=== PATIENT | female | born 1975 | race Caucasian/White ===

== ENCOUNTER 2024-05-12 16:38 | Inpatient (IN) | payer MEDICAID, OTHER ==
[~2024-05-12] VITALS: Ht 167.6 cm; Wt 77.2 kg
[2024-05-12 17:57] LABS: ANION GAP 8 mmol/L (8-16); CALCIUM, TOTAL 9.2 mg/dL (8.8-10.5); CARBON DIOXIDE 28 mmol/L (22-29); CHLORIDE 102 mmol/L (98-107); CREATININE 0.72 mg/dL (0.60-1.30); GLOMERULAR FILTR. RATE CALC > 60 mL/min (>60); GLUCOSE,RANDOM 100 mg/dL (70-110); POTASSIUM 4.3 mmol/L (3.5-5.1); SODIUM SERUM 138 mmol/L (136-145); UREA NITROGEN, BLOOD 13 mg/dL (7-18)
[2024-05-12 18:13] LABS: HCG,QUANTITATIVE 1 mIU/mL (0-6); THYROID STIMULATING HORMONE 1.37 uIU/mL (0.36-3.74)
[2024-05-12 18:18] LABS: ALCOHOL, BLOOD (SERUM) < 3 mg/dL (0-10)
[2024-05-12 18:54] LABS: COVID AG,FIA SOURCE NPH
[2024-05-12 19:02] LABS: APPEARANCE,URINE CLEAR (CLEAR); BILIRUBIN,URINE NEGATIVE (NEGATIVE); COLOR,URINE YELLOW (YELLOW); GLUCOSE, URINE (UA) NEGATIVE (NEGATIVE); LEUKOCYTE ESTERASE ,URINE NEGATIVE (NEGATIVE); NITRATE,URINE NEGATIVE (NEGATIVE); OCCULT BLOOD,URINE TRACE (NEGATIVE); PH,URINE 6.5 (5.0-8.0); PH,URINE DRUG SCREEN 6.5 (5.0-8.0); PROTEIN,URINE 30-70 mg/dL (NEGATIVE); SPECIFIC GRAVITIY, URINE 1.026 (1.003-1.030); UROBILINOGEN,URINE <=1.0 mg/dL (<=1.0)
[2024-05-12 19:08] LABS: ALCOHOL, URINE DRUG SCREEN NEGATIVE (NEGATIVE); AMPHET/METH SCREEN,URINE NEGATIVE (NEGATIVE); BARBITURATE SCREEN, URINE NEGATIVE (NEGATIVE); BENZODIAZEPINES SCREEN,URINE NEGATIVE (NEGATIVE); CANNABINOID SCREEN,URINE POSITIVE (NEGATIVE); COCAINE SCREEN,URINE NEGATIVE (NEGATIVE); METHADONE SCREEN, URINE NEGATIVE (NEGATIVE); OPIATE SCREEN,URINE NEGATIVE (NEGATIVE); PHENCYCLIDINE SCREEN,URINE NEGATIVE (NEGATIVE)
[2024-05-12 19:15] LABS: SQUAMOUS EPITHELIAL CELL,UR Few /LPF (None Seen)
[2024-05-12 19:16] LABS: BACTERIA,URINE None Seen /HPF (None Seen); RBC,URINE 0-2 /HPF (0-2); WBC,URINE 0-2 /HPF (0-5)
[2024-05-12 19:20] LABS: SARS-COV2 (COVID) ANTIGEN,FIA Negative (Negative)
[2024-05-12] MEDS: LORazepam 1 MG TABLET PO ONE (22:31)
[2024-05-12 22:55] LABS: BASOPHILS % (AUTO) 0.7 % (0.0-2.0); EOSINOPHILS % (AUTO) 0.7 % (1.0-6.0); HEMATOCRIT 42.4 % (36-46); HEMOGLOBIN 13.6 g/dL (12.0-16.0); LYMPHOCYTES # (AUTO) 2.1 K/uL (1.0-4.8); LYMPHOCYTES % (AUTO) 21.3 % (22.0-44.0); MEAN CORPUSCULAR HGB CONC 32.1 G/dL (31.0-37.0); MEAN CORPUSCULAR VOLUME 90 fL (80-100); MONOCYTES # (AUTO) 0.7 K/uL (0.1-1.0); MONOCYTES % (AUTO) 7.2 % (2.0-9.0); NEUTROPHILS # (AUTO) 7.1 K/uL (1.8-7.7); NEUTROPHILS % (AUTO) 70.1 % (40.0-70.0); PLATELET COUNT (AUTO) 264 K/uL (150-450); RED BLOOD CELL COUNT(AUTO) 4.71 MIL/uL (4.00-5.20); RED CELL DISTRIBUTION WIDTH 14.8 % (11.5-14.5); WHITE BLOOD COUNT (AUTO) 10.1 K/uL (4.5-11.0)
[2024-05-13] MEDS: LORazepam 1 MG TABLET PO ONE (01:21)
[2024-05-13] MEDS: LORazepam 2 MG TABLET PO PRN (11:41)
[2024-05-13] MEDS: QUEtiapine FUMARATE 100 MG TABLET PO PRN (13:08)
[2024-05-14 05:55] VITALS: BP 139/88; PULSE 84; RESP 18; TEMP 98.4; O2SAT 96
[2024-05-14 06:18] VITALS: BP 139/88; PULSE 84; RESP 18; TEMP 98.4
[2024-05-14] MEDS ORDERED: LOPERAMIDE HCL 2 MG CAPSULE PO PRN (08:15)
[2024-05-14] MEDS ORDERED: CloNIDine HCL 0.1 MG TABLET PO PRN (08:15)
[2024-05-14] MEDS ORDERED: PETROLATUM,WHITE 28 GM JELLY TP PRN (08:15)
[2024-05-14] MEDS ORDERED: MAGNESIUM HYDROXIDE SUSPENSION 30 ML UDCUP PO PRN (08:15)
[2024-05-14] MEDS ORDERED: GuaiFENesin/D-METHORPHAN [SUGAR-FREE] 200-20MG/10 ML SYRUP UDCUP PO PRN (08:15)
[2024-05-14] MEDS ORDERED: ONDANSETRON HCL 4 MG TABLET PO PRN (08:15)
[2024-05-14] MEDS ORDERED: NICOTINE 14 MG/24 HOUR PATCH TD PRN (08:15)
[2024-05-14] MEDS ORDERED: ALBUTEROL SULFATE HFA 90 MCG/PUFF 8 GM INHALER IH PRN (08:15)
[2024-05-14] MEDS ORDERED: ACETAMINOPHEN 325 MG TABLET PO PRN (08:15)
[2024-05-14] MEDS ORDERED: MAG HYDROX/ALUMINUM HYD/SIMETH ES 30 ML SUSPENSION UDCUP PO PRN (08:15)
[2024-05-14 08:26] VITALS: BP 136/83; PULSE 95; RESP 16; TEMP 97.5
[2024-05-14] MEDS ORDERED: SERT-440 PO (09:37)
[2024-05-14] MEDS ORDERED: QUET100T34 PO (09:37)
[2024-05-14] MEDS: SERTRALINE HCL 100 MG TABLET PO SCH (10:02)
[2024-05-14 17:49] VITALS: BP 136/83; PULSE 95; RESP 16; TEMP 97.5; O2SAT 97
[2024-05-14 20:03] VITALS: BP 132/78; PULSE 87; RESP 17; TEMP 98.3; O2SAT 98
[2024-05-14] MEDS: QUEtiapine FUMARATE 100 MG TABLET PO SCH (20:03)
[2024-05-15 08:26] VITALS: BP 130/81; PULSE 78; RESP 16; TEMP 98.2; O2SAT 97
[2024-05-15 08:54] LABS: CHOL/HDL RATIO 4.7 (3.9-5.7); THYROID STIMULATING HORMONE 1.24 uIU/mL (0.36-3.74)
[2024-05-15] MEDS: IBUPROFEN 400 MG TABLET PO PRN (20:44)
[2024-05-15 20:49] VITALS: BP 128/90; PULSE 88; RESP 17; TEMP 97.2; O2SAT 97
[2024-05-15 21:49] VITALS: RESP 17; O2SAT 98
[2024-05-16 08:26] VITALS: BP 145/101; PULSE 109; RESP 18; TEMP 98.2; O2SAT 96
[2024-05-16] MEDS: ZOLPIDEM TARTRATE 10 MG TABLET PO PRN (20:28)
[2024-05-16 21:14] VITALS: BP 143/81; PULSE 101; RESP 18; TEMP 98.4; O2SAT 97
[2024-05-17 09:07] LABS: APPEARANCE,URINE CLEAR (CLEAR); BILIRUBIN,URINE NEGATIVE (NEGATIVE); COLOR,URINE LIGHT YELLOW (YELLOW); GLUCOSE, URINE (UA) NEGATIVE (NEGATIVE); KETONES,URINE NEGATIVE (NEGATIVE); LEUKOCYTE ESTERASE ,URINE NEGATIVE (NEGATIVE); NITRATE,URINE NEGATIVE (NEGATIVE); OCCULT BLOOD,URINE NEGATIVE (NEGATIVE); PROTEIN,URINE NEGATIVE (NEGATIVE); SPECIFIC GRAVITIY, URINE 1.014 (1.003-1.030); UROBILINOGEN,URINE <=1.0 mg/dL (<=1.0)
[2024-05-17 09:18] LABS: ALCOHOL, URINE DRUG SCREEN NEGATIVE (NEGATIVE); AMPHET/METH SCREEN,URINE NEGATIVE (NEGATIVE); BARBITURATE SCREEN, URINE NEGATIVE (NEGATIVE); BENZODIAZEPINES SCREEN,URINE NEGATIVE (NEGATIVE); CANNABINOID SCREEN,URINE POSITIVE (NEGATIVE); COCAINE SCREEN,URINE NEGATIVE (NEGATIVE); METHADONE SCREEN, URINE NEGATIVE (NEGATIVE); OPIATE SCREEN,URINE NEGATIVE (NEGATIVE); PHENCYCLIDINE SCREEN,URINE NEGATIVE (NEGATIVE)
[2024-05-17 09:24] VITALS: BP 140/93; PULSE 100; RESP 17; TEMP 97.8; O2SAT 94
[2024-05-17] MEDS: DOCUSATE SODIUM 100 MG CAPSULE PO PRN (10:10)
[2024-05-17 12:46] VITALS: RESP 18
[2024-05-17 13:46] VITALS: RESP 18
[2024-05-17 20:00] VITALS: BP 143/89; PULSE 93; RESP 16; TEMP 97.7; O2SAT 95
[2024-05-18 08:56] VITALS: BP 135/78; PULSE 92; RESP 16; TEMP 97.7; O2SAT 97
[2024-05-18 20:10] VITALS: BP 133/73; PULSE 81; RESP 17; TEMP 97.5; O2SAT 98
[2024-05-18 20:18] VITALS: BP 133/73; PULSE 63; RESP 18; TEMP 97.7; O2SAT 98
[2024-05-18 21:10] VITALS: RESP 18; O2SAT 97
[2024-05-19 08:42] VITALS: BP 138/86; PULSE 90; RESP 16; TEMP 97.7; O2SAT 97
[2024-05-19 20:31] VITALS: BP 133/82; PULSE 87; RESP 18; TEMP 97.3; O2SAT 100
[2024-05-20 08:23] VITALS: RESP 18
[2024-05-20 20:00] VITALS: BP 128/68; PULSE 80; RESP 16; TEMP 98.2; O2SAT 98
[2024-05-21 00:15] VITALS: BP 129/77; PULSE 86; RESP 16; TEMP 97.8; O2SAT 98
[2024-05-21 08:13] VITALS: BP 115/60; PULSE 78; RESP 21; TEMP 98; O2SAT 99
[2024-05-21] MEDS ORDERED: QUET100T PO (17:06)
== END 2024-05-21 17:45 | disposition home or self-care (01) | DRG 753 ==
LOC: EMS 16:40 → B3A 05-14 04:45
PROVIDERS: ADMIT Psychiatry & Neurology Psychiatry; ATTEND Psychiatry & Neurology Psychiatry
PROC: GZHZZZZ Group Psychotherapy (ICD-10-PCS; principal; 2024-05-15)
DX: F31.5 Bipolar disorder, current episode depressed, severe, with psychotic features (principal); E78.5 Hyperlipidemia, unspecified; F12.10 Cannabis abuse, uncomplicated; F99 Mental disorder, not otherwise specified; Z20.822 Contact with and (suspected) exposure to COVID-19; G47.00 Insomnia, unspecified; F41.9 Anxiety disorder, unspecified; Z79.899 Other long term (current) drug therapy
CPT/HCPCS: 80048; 80061; 80307; 81001; 81003; 83036; 84443; 84702; 85025; 99285; G0480